=== PATIENT | female | born 1955 | race Caucasian/White ===

== ENCOUNTER → 2024-11-19 09:02 | Outpatient (CLI) | payer OTHER, SELFPAY ==
[2024-11-19 13:21] LABS: Appearance Urine UA CLEAR; Bilirubin Urine UA NEGATIVE (NEGATIVE); Color Urine UA YELLOW; Glucose Urine UA NEGATIVE (Negative); Ketones Urine UA NEGATIVE (NEGATIVE); Leukocyte Esterase Urine UA NEGATIVE (NEGATIVE); Nitrite Urine UA NEGATIVE (Negative); Occult Blood Urine UA TRACE-INTACT (Negative); Protein Urine UA NEGATIVE (Negative); Urine Volume 10mL (spun); Urobilinogen Urine UA 0.2 E.U./dL (0.2); pH Urine UA 5.5 (4.5-8.0)
[2024-11-19 13:25] LABS: Bacteria Urine None Seen; Culture Indicated Urine Cult Not Indicated; RBC Urine None Seen (0-5/HPF); Squamous Epithelial Cell Urine None Seen (0-5/HPF); WBC Urine None Seen (0-5/HPF)
== END ==
PROVIDERS: PCP Family Medicine; Visit Provider Obstetrics & Gynecology Gynecology
DX: R32 Unspecified urinary incontinence (principal)
CPT/HCPCS: 81001

== ENCOUNTER 2025-01-10 09:44 | Day surgery (SDC) | payer OTHER, SELFPAY ==
[2025-01-03 12:48] VITALS: BMI 24.0
--- NOTE | 2025-01-08 09:17 | PM.GYNHP.1 ---
History of Present Illness History of Present Illness Narrative: Ade Guerrero is a 69 year old female admitted for POP - LIO surgery. Date of procedure:?? January 10, 2025 Preoperative diagnosis:? Stage 3 POP: cystocele, uterus (mild rectocele) stress incontinence urge incontinence incomplete bladder emptying Planned Procedure:?? vaginal hysterectomy, uterosacral ligament vaginal vault suspension, anterior colporrhaphy, mid urethral sling, cystoscopy possible posterior colporrhaphy Postop Meds Tylenol 1000 mg, ?3 times a day? Motrin 400 mg (over age 65 yr) -or- 600 mg (under age 65 yr) ,? 3 times a day Oycodone 5 mg,? take 1 pill every 4-6 hr as needed, # 15? Colace,? 1 pill BID, for constipation CC: Prolapse of the uterus and bladder HPI:??69-year-old female who presents for evaluation of above complaint.?? She reports onset of symptoms 4 months ago.?? She considers this a? Moderate? problem. She is referred for prolapse of the uterus and bladder. She initially noted voiding difficulty with a stream that would stop and start. This was followed by increasing pelvic pressure. And then after that she began noticing a bulge of the vagina that she feels but does not see. It feels to her like it is about excised. She had a pelvic exam by another provider and they noted prolapse of the vagina and the uterus. She has prolapse symptoms of bulge, heaviness, pressure. She does not need to splint to void. But she does notice that the bulge will go back in after she voids. No difficulty with bowel movements. She is sexually active. She is currently limiting sexual activity due to concerns of incontinence with sex and because of the bulge. She expresses a desire for surgery. She denies stress incontinence, but does have urgency leakage occasionally at night on the way to the toilet. She wakes up once or twice at night to void. She voids every 2 hours in the day, with moderate urgency. Mostly no significant urinary incontinence. Uses no pads. She does have voiding difficulty, that started with the prolapse symptoms. The urinary stream will stop and start. She is unsure if she empties completely No prior hysterectomy. No prior abdominal surgery other than a tubal ligation. She has a history of breast cancer from 2016. She was using anastrozole as adjunctive treatment. This was stopped a couple of years ago. She has considered cured as of couple of years ago. She still gets follow-up mammograms. No recurrence. For prior vaginal deliveries She has a very active female and wants to get back to her normal activities. The prolapse is limiting her. 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 She is . Here today with her spouse Pelvic Floor Review of Systems: (HPI) Stress Urinary Incontinence symptoms (LIO):??None Triggers include:? Urge Incontinence symptoms (Urge UI):??0-1 a day. Triggers include:??Full bladder with urge ? Pads: She wears 0 pads Overactive Bladder symptoms (OAB):? ? Frequency:??Every 2 hours Nocturia:??Once or twice? Urgency:??Moderate Prior incontinence treatment includes:? Medical:??No ? Surgical:? No ? Kegels:?? Yes Physical therapy:?No? Pessary:?No? Diet / Fluids: Fluid restriction:? No Excessive fluids:?No Pain symptoms:? Painful bladder:???No Dysuria:???No Dyspareunia:? No Dysmenorrhea:? No Urinary Risk Factors UTI?s, recurrent:??No Hematuria:? No Kidney Stones:?No? Tobacco use:? No Pelvic Organ Prolapse (POP) symptoms:?? Bulge:??Yes Pressure and /or? Heaviness:??Yes Splint for defecation or voiding:??No Voiding dysfunction: Abnormal stream:??Yes Strain to void:? No Incomplete emptying:??Maybe Voiding difficulty:??Sometimes Retention:??? No Bowel Function: Constipation:??No? Strain to defecate:??No Fiber:??No Laxatives:??No Fecal Incontinence:? Liquid stool:? No Solid stool:?No?? Sexually active:??Yes Incontinence with sex:??No, but is concerned that she might have this ? UroGyn ROS ROS Narrative ROS Narrative: General Review of Systems: Constitutional, CV, Endo, Musc-skel, Eyes, Cancer, Skin, Breast, GI, Heme/Lymph, Psych, Urinary, Neuro, Career Placement Services Counselor, Resp, Sexual:??? Pertinent positives listed above in HPI All others reviewed and negative. All reviewed on patient questionnaire.? . . [facility] Medical History (Updated 11/19/24 @ 09:29 by Bony Gil MD) Voiding difficulty OAB (overactive bladder) Rectocele Uterine prolapse Cystocele, midline Comment: Breast cancer as noted above, diagnosed 2016 she sometimes gets leg swelling, headaches, arthritis symptoms. Social History marital status: household members: spouse and other lives independently: Yes caregiver/support person: No Tobacco & Substance Use Smoking Status: Never smoker substance use type: does not use Vitals 01/02/2511:33 Height 5 ft 8 in Weight 158 lb BMI 24.0 BP 118/80 Blood Pressure Location Lt brachial Position Sitting Pulse 70 Pulse Source Monitor Temp 97.0 F L Temp Source Temporal Artery Scan Pulse Oximetry (%) 99 Oxygen Delivery Method room air UroGyn Exam UroGyn Exam UroGyn Exam Narrative: General: healthy, alert, coherent, no acute distress, cooperative, nontoxic Pulmonary: normal breathing, no distress Abdomen: soft, no mass, non-distended, no hernia, non-tender Vulva: Normal labia majora, labia minora, introitus, and clitoris, non-tender Urethra meatus: normal, no discharge Perineum: Normal, non-tender Urethra: No mass, non-tender Bladder: no mass, non-tender Vagina: No lesions, no discharge, mild atrophy, non-tender Prolapse stage III cystocele, stage II uterus and rectocele Levators: Non-tender, Cervix: Normal, No lesions, no discharge, non-tender Uterus: normal size, non-tender Bimanual: no mass, no adnexal mass, non-tender Anus: No lesion, non-tender, no hemorrhoid Empty Cough Stress test: Neg PVR: 25 mL by catheter Urethral angle hypermobile: Yes Pelvic Organ Prolapse: Yes POP-Q Exam: Aa: 0 Ba: +2 Ap: -1 Bp: -1 C: 0 D: -5 TVL: 10 GH: 4 PB: +2 Introitus size: +2 fingerbreadths Cystocele stage: 3 Rectocele stage: 2 Uterine/Vault Prolapse Stage: 2 Office Procedures Informed consent given: Yes Residual: post void Complications: No Billing- Post Void Residual by Catheter: PVR Catheter - [id number] Assessment & Plan (1) Cystocele, midline: Status: Acute (2) Uterine prolapse: Status: Acute (3) Rectocele: Status: Acute (4) OAB (overactive bladder): Status: Acute (5) Voiding difficulty: Status: Acute Orders: Orders Urinalysis and Microscopic Today R32 - Unspecified urinary incontinence Time Spent Time Coding Minutes Spent: (must be on same date of service/appointment) Assessment and Plan ? Patient counseled regarding above conditions.? Educational materials given to patient. 1. Pelvic Organ Prolapse - Stage 3 cystocele, uterus, rectocele This diagnosis and its etiology was discussed with the patient.? Treatment options were discussed including: expectant management, pessary trial, and surgical intervention. We briefly discussed risks and benefits of surgery. All surgery for prolapse is not 100% successful and there is a chance of recurrence or failure. [She declines a Pessary Trial for Prolapse she desires surgery my recommendation = TVH, USVS, A&P, possible sling see AVS for counseling 2. Stress Urinary Incontinence with urethral hypermobility :? This diagnosis was discussed with the patient. The etiology was explained. Treatment options were discussed including expectant management, pelvic floor exercises, pessary trial, and surgical intervention (mid-urethral sling, Wells urethropexy, P-V sling, Laxmi urethral plication, urethral bulking injection).? Risks and benefits of surgery were briefly outlined. currently with no LIO sx however, at risk for postop LIO / occult LIO We will schedule her for urodynamic bladder testing to determine whether or not she has stress incontinence. If yes then will do a mid urethral sling with her prolapse repair. She prefers to have any stress urinary incontinence treated with her prolapse repair 3. Overactive bladder and urge incontinence.?? This diagnosis and its etiology was discussed with the patient.? Treatment options were discussed including: Behavior changes ( Limit fluid intake, Avoiding fluid intake 3 hours before bedtime, Avoiding bladder irritants / follow bladder diet, Bladder training exercises), Kegel / pelvic floor muscle exercises,? OAB Medications, and procedures to include:? bladder botox A injections, Interstim, and PTNS.?? No OAB med treatment for now, will follow for now, suspect related to her POP she underwent UDS that showed +LIO URODYNAMIC STUDIES [age] year old female, here for evaluation of overactive bladder, urge incontinence stage III prolapse, at risk for developing stress incontinence after prolapse surgery Complex Uroflowmetry: Voided Volume:? 39 cc? Max Flow:? 10 cc/s? Avg Flow:? For Cc/s PVR:? 20 cc? Pattern:? Interrupted. The computer did not capture all of her void. See the PF VS study below for more accurate reading. The voided volume there was 330 cc Filling Cystometry: Position:? Semi-Fowlers? Catheters: air-charged T-Doc? Fill rate:? 50 cc/min First Sensation:? 23 cc? First Urge:? 299 cc? Strong Urge:? 386 Cc? Capacity:? 412 cc Detrusor Overactivity (DO): No Compliance:? Normal EMG tracing -normal Valsalva Leak Point Pressure: ?at?400 cc:? 86 cm H2O? Leak ? :??Yes The abdominal leak point pressure was negative at 100, 200, 300 cc Cough stress test, positive:??Yes, at 300 cc Stress Urinary Incontinence (LIO):??Yes Urethral Pressure Profile: Maximum urethral closure pressure:? 35 cm H2O Pressure-Flow Voiding Study: Voided Volume:? 329 cc? Max Flow:? 42 cc/s? Pressure at Peak Flow:? 11 cm H2O? Avg Flow:? 22 cc/s? Postvoid residual 15 cc Normal PFVS ? ASSESSMENT Urodynamic evidence of?there was a mostly normal uroflowmetry that was not really captured by the machine. Her pressure flow voiding study did demonstrate normal voiding. There was stress incontinence at 300 cc. There was no detrusor instability. Other than stress incontinence, mostly normal LIO, yes ISD,?no DO, no 412 ml bladder capacity No urinary retention or voiding dysfunction. PFSH Medical History (Updated 01/03/25 @ 12:54 by Kat Erazo RN) History of breast cancer (2016) Stress incontinence, female Voiding difficulty OAB (overactive bladder) Rectocele Uterine prolapse Cystocele, midline Surgical History (Updated 01/03/25 @ 12:54 by Kat Erazo RN) Hx of tubal ligation Social History marital status: household members: spouse and other lives independently: Yes caregiver/support person: No Smoking Status: Never smoker substance use type: does not use Meds Home Medications and Allergies Home Medications Medication Instructions Recorded Confirmed Type acetaminophen 500 mg tablet 1,000 mg (2 x 500 mg) PO TID #30 11/23/24 01/02/25 Rx (Tylenol Extra Strength) tabs docusate sodium 100 mg capsule 100 mg PO BID #30 caps 11/23/24 01/02/25 Rx (Colace) naproxen sodium 220 mg tablet 440 mg (2 x 220 mg) PO BID PRN 11/23/24 01/02/25 Rx pain #30 tabs oxycodone 5 mg tablet 5 mg PO Q8H PRN pain #15 tabs 11/23/24 01/02/25 Rx oxycodone 5 mg tablet 5 mg PO Q6H PRN postop pain #15 01/02/25 01/02/25 Rx tabs Allergies Allergy/AdvReac Type Severity Reaction Status Date / Time amoxicillin AdvReac Nausea Verified 01/02/25 11:34 Assessment & Plan Assessment and plan (1) Uterine prolapse: Status: Acute (2) Cystocele, midline: Status: Acute (3) Stress incontinence, female: Status: Acute (4) Rectocele: Status: Acute Plan Date of procedure:?? January 10, 2025 Preoperative diagnosis:? Stage 3 POP: cystocele, uterus (mild rectocele) stress incontinence urge incontinence incomplete bladder emptying Planned Procedure:?? vaginal hysterectomy, uterosacral ligament vaginal vault suspension, anterior colporrhaphy, mid urethral sling, cystoscopy possible posterior colporrhaphy Postop Meds Tylenol 1000 mg, ?3 times a day? Motrin 400 mg (over age 65 yr) -or- 600 mg (under age 65 yr) ,? 3 times a day Oycodone 5 mg,? take 1 pill every 4-6 hr as needed, # 15? Colace,? 1 pill BID, for constipation Patient counseled extensively about the Risks, Benefits, and Alternatives to surgery.? She was offered the opportunity to ask any questions, and all questions were answered. ? Surgical Risks include: Bleeding, Hemorrhage, Transfusion, Infection (especially wound or bladder), Injury to adjacent organs (especially bladder, ureter, bowel, blood vessels, nerves), Postop or Chronic Pain, need for Reoperation, and Life-threatening event (especially M.I., CVA, PE, DVT). Procedure Risks include: Failure to Cure condition, Recurrence of condition months or years later, Urinary incontinence, Voiding dysfunction or Urinary Retention with prolonged catheter use, Poor wound healing, Erosions of any mesh or graft used, Dyspareunia, Vaginal scarring or narrowing, Need for additional surgery (immediate or delayed).? The expected cure and improvement and failure rates were discussed. Patient counseled to avoid the following for 6 weeks after surgery: (1) Impact sports (like running or jumping), walking and stairs OK (2) Lifting over 20# (3) Sexual intercourse No limits after 6 weeks. ? Good exercise tolerance, > 4 Mets. Her current medications were reviewed, and instructions given over which to use and which to discontinue before surgery.? Post-operative care instructions reviewed.? We discussed post-operative pain: Pain should be in the mild-moderate range, but can be moderate-severe for the first few days.?? Prescriptions will typically be given for (1) acetaminophen (Tylenol) and (2) non-steroidal anti-inflammatory drug (NSAID, like Motrin or Naprosyn), use both together, around the clock. Prescription will also be given for a (3) narcotic pain medication. Use the narcotic as needed, as a booster to the Tylenol and NSAID. You might need 0-4 narcotic pills a day typically. The narcotic will only be needed for a few days.?? Gradually use less of the narcotic, but continue the Tylenol and NSAID.? After a few days, the narcotic should no longer be needed, and only the Tylenol and NSAID will be needed.? Warm packs or cold packs can also be used for pain.??Do not drive for as long as you are using the narcotic pain medication? - this should only be a few days.?? Constipation is associated with use of narcotic pain medications, and can be improved with use of a stool softener, or fiber, or a mild laxative.? All of her questions were answered and then the consent was signed at the end of the office visit.? Patient sent for labs and her preadmission appointment. Bony Gil MD UroGynecology & Pelvic Reconstructive Surgery [place], [place] Time-Based Coding :: [TOTAL MINUTES] spent with patient and on the chart (including review of chart, obtaining history, exam, reviewing outside data, placing orders, documenting exam and treatment plan, and counseling patient) on [DATE].
[2025-01-10] VITALS (10 sets, daily range): BP systolic 110–138; BP diastolic 70–86; PULSE 64–78; RESP 15–17; TEMP 36.2–36.8; O2SAT 94–100; BMI 23.5; BMI 24.5
--- NOTE | 2025-01-10 | PATH_ITS ---
[facility] Accession Number: [id number] No. of containers..01 Tissue . 01 Material submitted: . uterus - CERVIX,UTERUS . 01 Diagnosis: UTERUS, CERVIX; HYSTERECTOMY (WITH PRESERVED ADNEXAE): Uterine weight: 42 grams. Uterine cervix: Mild chronic cervicitis; negative for dysplasia and malignancy. Benign, inactive endometrium with focal cystic atrophy. Negative for atypia, hyperplasia, or malignancy. [facility] 01/14/2025 1518 Local . 01 Electronically signed: . Kim Collins MD, Pathologist NPI- [id number] . 01 Gross description: . Received in formalin with two identifiers and uterus, cervix, is an intact uterus (42 grams, 6.8 cm superior to inferior, 4.1 cm medial to lateral, and 3.0 cm anterior to posterior) with attached cervix (3.5 x 3.5 cm), and no adnexa. The ectocervix is fu and wrinkled with a patulous os, 1.2 cm in diameter. The serosa is fu and smooth with no hemorrhage or adhesion identified. The anterior paracervical margin is inked blue while the posterior paracervical margin is inked black. . The endocervical canal has fu herringbone mucosa and measures 2.2 cm in length. The endometrial cavity is 1.8 cm from cornu to cornu and 3.7 cm in length with pink-fu velvety endometrium that averages 0.1 cm thick. The myometrium is fu and measures up to 1.6 cm in maximum thickness with no nodules or lesions identified. . Traffic Engineering Technician sections are submitted as follows: A1: Anterior cervix. A2: Posterior cervix. A3: Anterior full thickness section. A4: Posterior full thickness section. ([id number]) /MRV 01/11/2025 1928 Local . 01 Pathologist provided ICD-10: N81.4, N39.3, N81.11, N81.6 . 01 CPT . 112470 Specimen Comment: A courtesy copy of this report has been sent to [facility] Pathology Performed at: [address] [address], [place], [place] [id number] MD Oumar Christensen MD Phone: [phone]
[2025-01-10] MEDS: LACTATED RINGERS 1,000 ML 42 ML IV ×2 (10:55→17:01)
[2025-01-10] MEDS: PHENAZOPYRIDINE 100 MG TABLET 200 MG PO (10:57)
[2025-01-10] MEDS: ACETAMINOPHEN 325 MG TABLET 975 MG PO ×2 (10:57→18:39)
[2025-01-10] MEDS: GABAPENTIN 300 MG CAPSULE PO (10:58)
[2025-01-10] MEDS: CEFAZOLIN 2 GM/100 ML PREMIX 100 ML IV (11:45)
[2025-01-10 12:16] LABS: Add Manual Diff / Slide Review NO; Basophils Absolute Auto 0 /uL (0-100); Basophils Percent Auto 0.7 % (0-2); Eosinophils Absolute Auto 100 /uL (0-450); Eosinophils Percent Auto 3.6 % (2-4); Hematocrit 40.6 % (36-46); Hemoglobin 13.6 g/dL (12.0-16.0); Lymphocytes Absolute Auto 1400 /uL (1100-4500); Lymphocytes Percent Auto 35.6 % (25-40); Mean Corpuscular HGB Conc 33.4 % (30-36); Mean Corpuscular Hemoglobin 30.8 PG (26-34); Mean Corpuscular Volume 92.3 fL (80-100); Monocytes Absolute Auto 300 /uL (0-900); Monocytes Percent Auto 7.9 % (3-14); Neutrophils Absolute Auto 2100 /uL (1500-7000); Neutrophils Percent Auto 52.2 % (50-75); Platelet Count 172 X10^3/uL (150-400); Red Cell Distribution Width 12.8 % (11.6-14.8)
--- NOTE | 2025-01-10 12:25 | SUR.OPER ---
Lithotomy on padded OR bed. [place] Pad Positioner under torso. Head on pillow, arms padded ON arm boards. Legs secured in padded yellow fins stirrups.
[2025-01-10 12:38] LABS: Alanine Aminotransferase 27 IU/L (<35); Albumin 4.4 g/dL (3.5-5.0); Albumin Globulin Ratio 1.6 (1.0-2.8); Alkaline Phosphatase 105 U/L (38-126); Aspartate Aminotransferase 39 IU/L (14-36); BUN Creatinine Ratio 25.4 (6-22); Bilirubin Total 2.1 mg/dL (0.2-1.3); Blood Urea Nitrogen 17 mg/dL (7-17); Calcium 9.1 mg/dL (8.4-10.2); Carbon Dioxide 27 mmol/L (22-32); Chloride 107 mmol/L (98-107); Estimated Glomerular Filt Rate > 60 mL/min (>60); Globulin 2.7 g/dL (1.7-4.1); Glucose 93 mg/dL (70-99); HEMOLYSIS 38 (0-50); Sodium 139 mmol/L (137-145); Total Protein 7.1 g/dL (6.3-8.2)
[2025-01-10] MEDS: LIDOCAINE 1% W/EPI 10ML 20 ML INJ (12:42)
--- NOTE | 2025-01-10 14:48 | P.OP_ITS ---
Operative Date/Time/Diagnoses Date of procedure: 01/10/25 Time of procedure: 12:00 Pre-op diagnosis: Cystocele, uterine prolapse, stress incontinence Post-op diagnosis: same Procedure & Clinicians Procedure: Procedures Operation Date: 01/10/25 12:00 Actual Procedure Side Surgeon p Total Vaginal Hysterectomy, uterosacral vault suspension Bony Gil MD s Anterior/Posterior Repair Bony Gil MD s Sling Bony Gil MD Operative Notes Findings: Operative Note Surgeon:? Bony Gil MD Sports Management Internship:??Favian Dove MD Pre-Op Diagnosis:? Stage III ?Cystocele, uterine prolapse, stress incontinence Post-Op Diagnosis:??Same Procedure:?? Vaginal hysterectomy Uterosacral ligament vaginal vault suspension Anterior colporrhaphy Mid urethral sling Cystoscopy Findings (brief): ? 1.? EUA with POP as noted on preop exam. Normal size uterus, tubes, ovaries.?? TVH in usual fashion.? 2.? USVS with 2 sutures of 0-PDS on each side.? Excellent apical support when done.? Cystoscopy with bilateral ureteral jets noted.? 3.? Anterior colporrhaphy in usual fashion. first a midline plication of the bladder fascia, then mattress sutures x 3, all 2-0 vicryl. ? 4.? TVT sling placed at mid-urethra, tension-free.? Cystoscopy with normal bladder, urethra, ureters,? no trocar injury. ? 5.? Posterior colporrhaphy not needed. She did have a mild rectocele that was corrected with the vaginal vault suspension. Date of Surgery:? January 10, 2025 Complications:? None Specimens:? Uterus, cervix Anesthesia Technique:??General endotracheal Estimated Blood Loss (mls):? 250 Blood Replacement (mls):? None Drains:? Kowalski catheter, also a vaginal pack was placed, both will be removed at time of discharge. Condition:? Stable Procedure in detail: After consent was confirmed, the patient was taken to the operating room and placed under general anesthesia without incident.? Sequential compression devices were in place and active.? She received perioperative antibiotics.? She was then prepped and draped in the usual sterile fashion after placement in the dorsal lithotomy position using the Aureliano stirrups.? A Kowalski catheter was placed.? A weighted speculum was placed in the vagina and the cervix was grasped with a tenaculum. The cervix was circumferentially injected with 10-20 cc of 0.5% lidocaine / epinephrine 1:200,000.? A circumferential incision was made with electrocautery through the vaginal mucosa and carried down to the underlying cervical stroma. The posterior peritoneum was entered sharply and a retractor was placed.? Curved Pinky clamps and 0-vicryl sutures were used.? The uterosacral ligaments were clamped, cut, and ligated bilaterally, and then tagged for use later in the case.? The anterior peritoneum entered sharply, and a kowalski catheter was placed.? The cardinal ligaments were clamped, cut, and ligated bilaterally.? The uterine vessels were clamped, cut, and ligated bilaterally. The broad ligaments were clamped, cut, and ligated bilaterally.? The utero-ovarian ligaments were clamped, cut, and ligated bilaterally, and the cervix and uterus were removed.? Inspection of all pedicles was completed and hemostatis was assured.? The fallopian tubes and ovaries appeared grossly normal an were left in situ. ? A large laparotomy surgical sponge was placed into the pelvis and a Newbern retractor was used to elevate the sponge and bowel to expose the pelvic sidewalls and utero-sacral ligaments.? Tension was placed on the previously tagged left Utero-Sacral ligament, and 2 sutures of 0-PDS were placed through the U-S ligament, just above the ischial spine, and tagged for use later.? The same procedure was done on the right U-S ligament.? Cystoscopy was performed to confirm ureteral patency with a 70 degree lens. The bladder and ureters were normal and bilateral ureteral efflux with pyridium was seen, first without and then with traction on the U-S ligament suspension sutures, confirming ureteral patency.? The large sponge was removed.?? Attention was then turned to the anterior vaginal wall. The anterior vaginal mucosa was grasped with Allis clamps and was injected with 10-20 cc of 0.5% lidocaine / epinephrine 1:200,000.? A midline incision was made with a scalpel, from the U-V junction to the apex. The vaginal mucosa was dissected off of the underlying pubocervical fascia until the sidewalls were reached.?? The bladder fascia was plicated with running 2-0 vicryl, and then the vaginal mucosa was plicated with 3 horizontal mattress sutures of 2-0 vicryl. Excess anterior vaginal mucosa was trimmed and the incision was closed with 2-0 vicryl. ? The 2 Left U-S ligament suspension sutures were passed through the left side of the vaginal apex, approximately at the left apical sidewall at the tagged left utero-sacral ligament, then about 1 -2 cm medial. The same procedure was done on the Right side. The vaginal cuff was closed with 2 runni ng, locked sutures of 0-vicryl. The U-S ligament suspension sutures were tied, elevating the vaginal apex several centimeters deep into the pelvis. With the Kowalski catheter in place, the anterior vaginal mucosa beneath and lateral to the urethra was injected with 10-20 cc of? 0.5% lidocaine / epinephrine 1:200,000.? A 2-3 cm midline incision was made at the level of the midurethra with a scapel. Metzenbaum scissors were used to dissect the vagina from the urethra and then create tunnels beneath the vaginal mucosa up toward the pubic bone on each side.? A marking pen was used to karina the skin just above the pubic bone and 2 cm from the midline bilaterally, and two small 8-10 mm incisions were made on the suprapubic skin.? The trocar was passed from the right vaginal tunnel, behind the pubic bone, to the right suprapubic incision, and this was repeated on the left side.? The Kowalski catheter was removed, and cystoscopy was performed with a 70 degree lens. There was no trocar injury, and the bladder, ureters, and urethra were normal.? The Kowalski catheter was reinserted.? The sling was pulled into position in a tension-free manner, and a Laxmi clamp was easily passed between the sling and the urethra.? The plastic sheaths were removed to anchor the sling, and tension was checked again. The ends of the sling were trimmed just below the skin, and the skin incisions were cleaned and closed with dermabond. The vaginal incision was closed with 2-0 vicryl in a running fashion. Sponge, needle and instrument count was correct.? The patient tolerated the procedure well and was taken to the recovery room in stable condition. Bony Gil MD UroGynecology & Pelvic Reconstructive Surgery [place], [place]
[2025-01-10] MEDS: OXYCODONE IR 5 MG TABLET PO ×2 (14:55→17:01)
[2025-01-10] MEDS: hydrOXYzine 50 MG/ML INJ 25 MG IM (14:55)
[2025-01-10] MEDS: ONDANSETRON 4 MG/2 ML INJ IV (14:56)
--- NOTE | 2025-01-10 18:41 | PC.NURSE ---
Patients gauze packing pulled from Vagina, 300cc of sterile water insilled into patients bladder, kowalski taken out and patient was able to void 200cc. She is going to be discharged home now. She was given oxycodone and tylenol for discomfort. will bring patient home.
--- NOTE | 2025-01-10 19:55 | PC.NURSE ---
Patient discharged home with at 19:45 in private vehicle. Discussed discharge orders with patient and spouse. All personal items removed from room. IV taken out by day shift nurse. [employer] Transported pt to car (with ) via wheelchair.
== END 2025-01-10 19:45 | disposition home or self-care (01) ==
LOC: OR 09:46 → AC 15:27
PROVIDERS: PCP Family Medicine; Referring Provider Obstetrics & Gynecology Gynecology; Visit Provider Obstetrics & Gynecology Gynecology
PROC: (CPT 58260; principal; 2025-01-10 12:00)
PROC: 0TSD0ZZ Reposition Urethra, Open Approach (ICD-10-PCS; 2025-01-10 12:00)
DX: N81.3 Complete uterovaginal prolapse (principal); N39.3 Stress incontinence (female) (male); R33.9 Retention of urine, unspecified; R39.15 Urgency of urination; N36.41 Hypermobility of urethra; N32.81 Overactive bladder; N72 Inflammatory disease of cervix uteri
CPT/HCPCS: 58260; 57288; 57240; 80053; 85025; C1771; J0330; J0690; J1100; J1171; J2250; J2405; J2704; J3010; J3410

== ENCOUNTER → 2025-02-18 14:31 | Outpatient (CLI) | payer OTHER, SELFPAY ==
[2025-01-10 15:32] VITALS: BMI 24.5
[2025-02-18 18:45] LABS: Appearance Urine UA CLEAR; Bilirubin Urine UA NEGATIVE (NEGATIVE); Color Urine UA YELLOW; Glucose Urine UA NEGATIVE (Negative); Ketones Urine UA NEGATIVE (NEGATIVE); Leukocyte Esterase Urine UA NEGATIVE (NEGATIVE); Nitrite Urine UA NEGATIVE (Negative); Occult Blood Urine UA NEGATIVE (Negative); Protein Urine UA NEGATIVE (Negative); Urobilinogen Urine UA 0.2 E.U./dL (0.2)
[2025-02-18 18:49] LABS: pH Urine UA 6.5 (4.5-8.0)
[2025-02-18 18:52] LABS: Bacteria Urine None Seen; Culture Indicated Urine Cult Not Indicated; RBC Urine None Seen (0-5/HPF); Squamous Epithelial Cell Urine None Seen (0-5/HPF); Urine Volume 10mL (spun); WBC Urine None Seen (0-5/HPF)
== END ==
PROVIDERS: PCP Family Medicine; Visit Provider Obstetrics & Gynecology Gynecology
DX: Z09 Encounter for follow-up examination after completed treatment for conditions other than malignant neoplasm (principal); N32.81 Overactive bladder
CPT/HCPCS: 81001